=== PATIENT | female | born 1945 | race Caucasian/White ===

== ENCOUNTER 2020-04-22 15:08 | Outpatient (REF) | payer MEDICARE, SELFPAY | END 2020-04-22 15:09 | disposition home or self-care (01) | LOC: HO.LAB 15:08 | PROVIDERS: Visit Provider Internal Medicine | DX: Z20.822 Contact with and (suspected) exposure to COVID-19 (principal) | CPT/HCPCS: 36415; C9803; U0003; U0005 ==

== ENCOUNTER 2021-04-29 15:10 | Outpatient (REF) | payer MEDICARE, SELFPAY ==
[2021-04-29 15:42] LABS: COVID-19 Test Positive (Negative)
== END 2021-04-29 15:11 | disposition home or self-care (01) ==
LOC: HO.LAB 15:10
PROVIDERS: Visit Provider Internal Medicine
DX: Z20.822 Contact with and (suspected) exposure to COVID-19 (principal)
CPT/HCPCS: 87635; C9803

== ENCOUNTER 2021-05-16 11:15 | Outpatient (REF) | payer MEDICARE, SELFPAY ==
[2021-05-16 11:47] LABS: COVID-19 Test Negative (Negative)
== END 2021-05-16 11:16 | disposition home or self-care (01) ==
LOC: HO.LAB 11:15
PROVIDERS: Visit Provider Internal Medicine
DX: Z20.822 Contact with and (suspected) exposure to COVID-19 (principal)
CPT/HCPCS: 87635; C9803

== ENCOUNTER 2021-09-25 15:23 | Outpatient (REF) | payer MEDICARE, SELFPAY ==
[2021-09-25 15:59] LABS: COVID-19 Test Negative (Negative); IDNOW Serial# 08D9AD1C
== END 2021-09-25 15:24 | disposition home or self-care (01) ==
LOC: HO.LAB 15:23
PROVIDERS: Visit Provider Internal Medicine
DX: Z20.822 Contact with and (suspected) exposure to COVID-19 (principal)
CPT/HCPCS: 87635; C9803

== ENCOUNTER 2022-04-30 14:50 | Outpatient (REF) | payer MEDICARE, SELFPAY ==
[2022-04-30 16:10] LABS: COVID-19 Test Negative (Negative); IDNOW Serial# 08D9AD1C
== END 2022-04-30 14:51 | disposition home or self-care (01) ==
LOC: HO.LAB 14:50
PROVIDERS: Visit Provider Internal Medicine
DX: Z20.822 Contact with and (suspected) exposure to COVID-19 (principal)
CPT/HCPCS: 87635; C9803

== ENCOUNTER 2024-05-28 05:16 | Emergency (ER) | payer MEDICARE, MEDICAID, SELFPAY ==
--- NOTE | ~2024-05-28 | CT_ITS ---
CLINICAL HISTORY: s p fall CT cervical spine without contrast Comparison: None Findings: No fracture or acute malalignment. Multilevel degenerative changes with disc space narrowing throughout the cervical spine. The facet joints are normally imbricated. No prevertebral soft tissue edema. Lung apicies demonstrate no acute process. Nodular density at the right lung apex on 232 appears flattened and scar-like on the coronal reformatted imaging. Impression: Multilevel degenerative changes without evidence of acute fracture or acute malalignment. This document has been electronically signed by: Benson Webb MD on 05/28/2024 06:45:06
--- NOTE | ~2024-05-28 | CT_ITS ---
CLINICAL HISTORY: s p fall CT head without contrast Comparison: None Findings: No evidence of acute territorial infarct. There is mild patchy low density in the periventricular and subcortical white matter. Mild volume loss is noted. No hydrocephalus. No hemorrhage, mass effect, mass lesion or midline shift. No abnormal extra-axial fluid. No calvarial fracture. Paranasal sinuses and mastoid air cells are clear. Impression: No evidence of acute process. Mild chronic changes. This document has been electronically signed by: Benson Webb MD on 05/28/2024 06:45:40
[2024-05-28 05:18] VITALS: BP 127/52; PULSE 79; RESP 18; TEMP 36.6; O2SAT 97; BMI 19.0
--- NOTE | 2024-05-28 05:47 | ED_ITS ---
HPI - Fall General Chief Complaint: Fall Stated Complaint: fall head strike Time Seen by Provider: 05/28/24 05:31 Source: patient Mode of arrival: ambulatory Limitations: no limitations History of Present Illness ED Provider: HPI Narrative: Patient with no significant past medical history apparently was sitting on a kitchen chair while watching TV fell asleep and fell off the chair hitting her top of the head to the wooden floor has some swelling of the top of the head no neck pain no loss of consciousness no seizures no other injuries patient is not on any blood thinner no other significant past medical history Related Data Allergies Allergy/AdvReac Type Severity Reaction Status Date / Time No Known Allergies Allergy Verified 05/28/24 05:26 Review of Systems Review of Systems: Yes all other systems are reviewed and are negative [facility] Social History Social History Smoked in Last 30 Days: No Use of substances other than those prescribed or required for medical reasons: No Advance Directives: No Physical Exam Vital Signs: Vital Signs: Last Vital Signs Temp 97.9 F 05/28/24 05:18 Pulse 79 05/28/24 05:18 Resp 18 05/28/24 05:18 BP 127/52 L 05/28/24 05:18 Pulse Ox 97 05/28/24 05:18 O2 Del Method Room Air 05/28/24 05:18 BMI result Body Mass Index 19.0 Appearance: Alert. Oriented X3. No acute distress. Eyes: PERRLA, No Nystagmus HEENT: Pharynx normal. Oral Mucosa moist slight tenderness on top of the head with soft tissue swelling Neck: Normal inspection. Neck supple. No midline tenderness CVS: Normal heart rate and rhythm. Pulses normal. Respiratory: No respiratory distress. Equal air entry bilateral, no wheezing/rales/rhonchi Abdomen: Soft and nontender. Bowel sounds are present, no mass palpable, no CVA tenderness Skin: Skin warm and dry. Normal skin color. Normal skin turgor. Extremities: No lower extremity edema. No calf tenderness Neuro: Oriented X 3. No motor deficit. No sensory deficit.No cerebellar signs , cranial nerves II-XII intact Medical Decision Making Medical Decision Making MDM Narrative: Patient is status post mechanical fall head CT and C-spine negative will discharge patient home vitals stable patient is ambulatory in his steady gait Radiology Impression Discussion of test interpretation with radiology: I have reviewed the radiologist's reading. Radiologist Impression: mpression: No evidence of acute process. Mild chronic changes. This document has been electronically signed by: Benson Webb MD on 05/28/2024 06:45:[address] [place] [address] [address] Scan Report Signed Patient: Rocio Saravia MR#: [id number] : 1945 Acct:[id number] Age/Sex: 78 / F ADM Date: 05/28/24 Loc: HO.ED Attending Dr: Ordering Physician: Kamron Garcia MD Date of Service: 05/28/24 Procedure(s): CT cervical spine wo IV con Accession Number(s): [id number] cc: Tony Juarez MD; Kamron Garcia MD~ Report Number: [id number]: Total DLP = 156.00 mGy-cm CLINICAL HISTORY: s p fall CT cervical spine without contrast Comparison: None Findings: No fracture or acute malalignment. Multilevel degenerative changes with disc space narrowing throughout the cervical spine. The facet joints are normally imbricated. No prevertebral soft tissue edema. Lung apicies demonstrate no acute process. Nodular density at the right lung apex on 232 appears flattened and scar-like on the coronal reformatted imaging. Impression: Multilevel degenerative changes without evidence of acute fracture or acute malalignment. This document has been electronically signed by: Benson Webb MD on 05/28/2024 06:45:06 Discharge Plan Discharge Clinical Impression: Closed head injury Patient Disposition: Home, Self-Care Instructions: Head Injury (ED) Additional Instructions: Care and cautions as advised Your CT scan of the head and cervical spine negative for acute Print Language: [place]
[2024-05-28 07:07] VITALS: BP 139/63; PULSE 84; RESP 18; TEMP 36.3; O2SAT 94
== END 2024-05-28 07:08 | disposition home or self-care (01) ==
PROVIDERS: Emergency Provider Internal Medicine; PCP Family Medicine
DX: S09.90XA Unspecified injury of head, initial encounter (principal); W07.XXXA Fall from chair, initial encounter; Y93.9 Activity, unspecified; Y92.9 Unspecified place or not applicable; Y99.9 Unspecified external cause status
CPT/HCPCS: 70450; 72125; 99284

== ENCOUNTER → 2024-05-28 05:33 | Outpatient (BNV) | payer MEDICARE, MEDICAID, SELFPAY | PROVIDERS: Emergency Provider Internal Medicine; PCP Family Medicine; Visit Provider Radiology Vascular & Interventional Radiology | DX: M50.30 Other cervical disc degeneration, unspecified cervical region (principal); S09.90XA Unspecified injury of head, initial encounter; W19.XXXA Unspecified fall, initial encounter | CPT/HCPCS: 70450; 72125 ==